=== PATIENT | female | born 1955 | race Hispanic/Latino ===

== ENCOUNTER 2018-10-24 21:03 | Emergency (ER) | payer OTHER ==
[~2018-10-24] VITALS: Ht 160 cm; Wt 85.7 kg
--- OUTSIDE RECORDS SUMMARY | 2018-10-24 21:07 | XMS REPORT | Summary of Care ---
Author Author [facility] Organization [facility] Address Unknown Phone Unavailable Encounter KEV Stewart(DICK) [id number] Date(s): 05/25/15 - 05/25/15 [facility] [address] [place] [address]- [phone] Discharge Diagnosis: Diarrhea, unspecified Discharge Disposition: Home Attending Physician: Ren Garcia MD Vital Signs Most recent to 1 oldest [Reference Range]: Height 160.02 cm (05/25/15 10:33 AM) Temperature Oral 98 DegF [96.4-99.1 DegF] (05/25/15 10:33 AM) Blood Pressure 149/81 mmHg [90-140/60-90 mmHg] *HI* (05/25/15 10:33 AM) Respiratory Rate 18 BRMIN [14-20 BRMIN] (05/25/15 10:33 AM) Peripheral Pulse 111 bpm Rate [60-100 bpm] *HI* (05/25/15 10:33 AM) Weight 79.545 kg (05/25/15 10:33 AM) Body Mass Index 31.06 m2 (05/25/15 10:33 AM) Problem List Condition Effective Dates Status Health Status Informant Hypothyroidism(Confi Resolved rmed) Allergies, Adverse Reactions, Alerts Substance Reaction Severity Status aspirin Active Food Lactose Intolerance Active (Restricts Milk/Milk Products) Medications Flagyl 500 mg oral tablet 500 mg=1 tab, PO, Q8H, X 10 day, # 30 tab, 0 Refill(s), Pharmacy: [facility] [id number] Start Date: 05/25/15 Stop Date: 06/04/15 Status: Ordered morphine Sulfate 4 mg, Route: IVP, ONCE, Dosing Weight 79.545, kg, Priority: STAT, Start date: 11:45:00, Stop date: 05/25/15 11:45:00 Start Date: 05/25/15 Stop Date: 05/25/15 Status: Completed ondansetron 4 mg, Route: IVP, ONCE, Dosing Weight 79.545, kg, Priority: STAT, Start date: 11:45:00, Stop date: 05/25/15 11:45:00 Start Date: 05/25/15 Stop Date: 05/25/15 Status: Completed Saline Flush 0.9% 10 mL, Route: IVP, Drug Form: INJ, Dosing Weight 79.545, kg, PRN, PRN Line Flush , Start date: 05/25/15 11:45:00, Duration: 30 day, Stop date: 06/24/15 11:44:00 Notes: (Same as: BD Posiflush) Start Date: 05/25/15 Stop Date: 05/25/15 Status: Discontinued Sodium Chloride 0.9% (Bolus) IV 1,000 mL, Infuse Over: 1 hr, Route: IV, ONCE, Priority: STAT, Dosing Weight 79.5 45 kg, Start date: 05/25/15 11:45:00, Duration: 1 doses or times, Stop date: 10/03 11:45:00 Start Date: 05/25/15 Stop Date: 05/25/15 Status: Completed Results ELECTROLYTES Most recent to 1 oldest [Reference Range]: Sodium Lvl [135-145 137 mEq/L mEq/L] (05/25/15 12:05 PM) Potassium Lvl 3.6 mEq/L [3.5-5.1 mEq/L] (05/25/15 12:05 PM) Chloride Lvl [95-109 106 mEq/L mEq/L] (05/25/15 12:05 PM) CO2 [24-32 mEq/L] 23 mEq/L *LOW* (05/25/15 12:05 PM) AGAP [10.0-20.0 11.6 mEq/L mEq/L] (05/25/15 12:05 PM) CHEM PANEL Most recent to 1 oldest [Reference Range]: Creatinine Lvl 0.98 mg/dL [0.50-1.40 mg/dL] (05/25/15 12:05 PM) eGFR 64 mL/min/1.73m2 1 *NA* (05/25/15 12:05 PM) BUN [7-22 mg/dL] 11 mg/dL (05/25/15 12:05 PM) B/C Ratio [6-25] 11 (05/25/15 12:05 PM) Glucose Lvl [70-99 106 mg/dL mg/dL] *HI* (05/25/15 12:05 PM) Total Protein 7.7 g/dL [6.4-8.4 g/dL] (05/25/15 12:05 PM) Albumin Lvl [3.5-5.0 3.6 g/dL g/dL] (05/25/15 12:05 PM) Globulin [2.0-4.0 4.1 g/dL g/dL] *HI* (05/25/15 12:05 PM) A/G Ratio [0.7-1.6] 0.9 (05/25/15 12:05 PM) Calcium Lvl 8.6 mg/dL [8.5-10.5 mg/dL] (05/25/15 12:05 PM) ALT [0-65 unit/L] 45 unit/L (05/25/15 12:05 PM) AST [0-37 unit/L] 18 unit/L (05/25/15 12:05 PM) Alk Phos [39-136 177 unit/L unit/L] *HI* (05/25/15 12:05 PM) Bili Total [0.2-1.3 0.6 mg/dL mg/dL] (05/25/15 12:05 PM) Amylase Lvl [25-115 45 unit/L unit/L] (05/25/15 12:05 PM) Lipase Lvl [73-393 94 unit/L unit/L] (05/25/15 12:05 PM) 1Result Comment: The eGFR is calculated using the CKD-EPI formula. In most young, healthy individuals the eGFR will be >90 mL/min/1.73m2. The eGFR declines with age. An eGFR of 60-89 may be normal in some populations, particularly the elderly, for whom the CKD-EPI formula has not been extensively validated. Use of the eGFR is not recommended in the following populations: Individuals with unstable creatinine concentrations, including patients and those with serious co-morbid conditions. Patients with extremes in muscle mass or diet. The data above are obtained from the National Kidney Disease Education Program ( NKDEP) which additionally recommends that when the eGFR is used in patients with extremes of body mass index for purposes of drug dosing, the eGFR should be mul tiplied by the estimated BMI. URINE AND STOOL Most recent to 1 oldest [Reference Range]: UA Turbidity [Clear] Marked *ABN* (05/25/15 10:48 AM) UA Color [Yellow] Yellow *NA* (05/25/15 10:48 AM) UA pH [5.0-8.0] 5.0 (05/25/15 10:48 AM) UA Spec Grav 1.025 [<=1.030] (05/25/15 10:48 AM) UA Glucose [Negative Negative mg/dL mg/dL] *NA* (05/25/15 10:48 AM) UA Blood [Negative] Moderate *ABN* (05/25/15 10:48 AM) UA Ketones [Negative Trace mg/dL mg/dL] *ABN* (05/25/15 10:48 AM) UA Protein [Negative Negative mg/dL mg/dL] (05/25/15 10:48 AM) UA Urobilinogen <=1.0 mg/dL [0.1-1.0 mg/dL] *NA* (05/25/15 10:48 AM) UA Bili [Negative] Negative *NA* (05/25/15 10:48 AM) UA Leuk Est Trace [Negative] *ABN* (05/25/15 10:48 AM) UA Nitrite Negative [Negative] (05/25/15 10:48 AM) UA WBC [0-5 /HPF] 4 /HPF (05/25/15 10:48 AM) UA RBC [0-2 /HPF] 4 /HPF *HI* (05/25/15 10:48 AM) UA Bacteria [None Many /HPF Seen /HPF] *ABN* (05/25/15 10:48 AM) UA Sq Epi [Few /LPF] Many /LPF *ABN* (05/25/15 10:48 AM) UA Mucus [None Seen Many /LPF /LPF] *ABN* (05/25/15 10:48 AM) HEMATOLOGY Most recent to 1 oldest [Reference Range]: WBC [3.7-10.4 K/CMM] 15.3 K/CMM *HI* (05/25/15 12:05 PM) RBC [4.20-5.40 5.63 M/CMM M/CMM] *HI* (05/25/15 12:05 PM) Hgb [12.0-16.0 g/dL] 15.1 g/dL (05/25/15 12:05 PM) Hct [36.0-48.0 %] 47.3 % (05/25/15 12:05 PM) MCV [80.0-98.0 fL] 84.0 fL (05/25/15 12:05 PM) MCH [27.0-31.0 pg] 26.8 pg *LOW* (05/25/15 12:05 PM) MCHC [32.0-36.0 31.8 g/dL g/dL] *LOW* (05/25/15 12:05 PM) RDW [11.5-14.5 %] 13.9 % (05/25/15 12:05 PM) Platelet [133-450 235 K/CMM K/CMM] (05/25/15 12:05 PM) MPV [7.4-10.4 fL] 8.5 fL (05/25/15 12:05 PM) Segs [45.0-75.0 %] 84.9 % *HI* (05/25/15 12:05 PM) Lymphocytes 7.6 % [20.0-40.0 %] *LOW* (05/25/15 12:05 PM) Monocytes [2.0-12.0 7.0 % %] (05/25/15 12:05 PM) Eosinophils [0.0-4.0 0.1 % %] (05/25/15 12:05 PM) Basophils [0.0-1.0 0.4 % %] (05/25/15 12:05 PM) Segs-Bands # 13.0 K/CMM [1.5-8.1 K/CMM] *HI* (05/25/15 12:05 PM) Lymphocytes # 1.2 K/CMM [1.0-5.5 K/CMM] (05/25/15 12:05 PM) Monocytes # [0.0-0.8 1.1 K/CMM K/CMM] *HI* (05/25/15 12:05 PM) Basophils # [0.0-0.2 0.1 K/CMM K/CMM] (05/25/15 12:05 PM) Immunizations No data available for this section Procedures No data available for this section Social History Social History Type Response Smoking Status Former smoker; Exposure to Tobacco Smoke None; Cigarette Smoking Last 365 Days No; Reg Smoking Cessation Counseling No Assessment and Plan No data available for this section
--- OUTSIDE RECORDS SUMMARY | 2018-10-24 21:07 | XMS REPORT ---
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 Role Phone Mary Christina CP Unavailable Allergies, Adverse Reactions, Alerts Substance Reaction Event Type Lactose Info Not Available Drug Allergy Aspirin Info Not Available Drug Allergy Encounters Encounter Location Date feeling discomfort in chest area [facility] Jan 27, 2016 Test results [facility] Feb 08, 2016 YOBANY/KATHRYN-PRISCILLA ALEJANDRO [facility] Feb 09, 2016 Problems Problem Type Condition ICD-9 Code Onset Dates Condition Status Problem Prediabetes R73.09 Active Problem Mixed hyperlipidemia E78.2 Active Problem Osteopenia M85.80 Active Problem History of rheumatoid arthritis Z87.39 Active Assessment Elevated white blood cell count D72.829 Active Medications Medication Code System Code Instructions Start Date End Date Status Dosage Vitamin D (Ergocalciferol) [facility] [address]-94 [id number] UNIT Orally q weekly August 17, 2015 August 11, 2016 Active 1 capsule Levothyroxine Sodium [facility] [address]-80 100 MCG Orally Once a day September 15, 2015 Active 1 tablet Fish Oil [facility] [address]-64 1000 mg Orally twice a day (bid) September 15, 2015 September 09, 2016 Active 2 capsules Social History Social History Element Qualifiers Date Reported Depression Screening: . negative Feb 09, 2016 Ethnicity . Status , Is ukrainian your primary language? Yes Feb 09, 2016 children . 3 Feb 09, 2016 Tobacco Use: . Are you a: never smoker Feb 09, 2016 Flu Vaccine: . No, Advised Feb 09, 2016 Alcohol Screening: . Points: 0, Interpretation: Negative Feb 09, 2016 Do you have pets? . Status: Yes Feb 09, 2016 Marital Status: single. Feb 09, 2016 Caffeine intake? . Status: Yes Feb 09, 2016 Do you exercise? . Answer: Yes Feb 09, 2016 Do you drink alcohol? . Status: No Feb 09, 2016 Family history Qualifier Description Comment Date Reported Maternal Grandmother Comment not available Feb 09, 2016 Paternal Grandmother Comment not available Feb 09, 2016 Siblings Comment not available Feb 09, 2016 Maternal Grandfather Comment not available Feb 09, 2016 Children Comment not available Feb 09, 2016 Father Comment not available Feb 09, 2016 Paternal Grandfather Comment not available Feb 09, 2016 Mother Comment not available Feb 09, 2016 Other: Comment not available Feb 09, 2016 Summary Purpose eClinicalWorks Submission
--- OUTSIDE RECORDS SUMMARY | 2018-10-24 21:07 | XMS REPORT ---
Author Author David Chowdhury [facility] eClinicalWorks Address Unknown Phone Unavailable Care Team Providers Care Pastoral Assistant Name Role Phone David Chowdhury Unavailable Encounters Encounter Location Date feeling discomfort in chest area [facility] Jan 27, 2016 Test results [facility] Feb 08, 2016 Problems Problem Type Condition ICD-9 Code Onset Dates Condition Status Problem Prediabetes R73.09 Active Problem Mixed hyperlipidemia E78.2 Active Problem Osteopenia M85.80 Active Problem History of rheumatoid arthritis Z87.39 Active Assessment Elevated white blood cell count D72.829 Active Social History Social History Element Qualifiers Date Reported Depression Screening: . negative Jan 27, 2016 Ethnicity . Status , Is armenian your primary language? Yes Jan 27, 2016 children . 3 Jan 27, 2016 Tobacco Use: . Are you a: never smoker Jan 27, 2016 Flu Vaccine: . No, Advised Jan 27, 2016 Alcohol Screening: . Points: 0, Interpretation: Negative Jan 27, 2016 Do you have pets? . Status: Yes Jan 27, 2016 Marital Status: single. Jan 27, 2016 Caffeine intake? . Status: Yes Jan 27, 2016 Do you exercise? . Answer: Yes Jan 27, 2016 Do you drink alcohol? . Status: No Jan 27, 2016 Summary Purpose eClinicalWorks Submission
--- OUTSIDE RECORDS SUMMARY | 2018-10-24 21:07 | XMS REPORT | Summary of Care ---
Author Author [facility] Organization [facility] Address Unknown Phone Unavailable Encounter KEV Stewart(DICK) [id number] Date(s): 02/14/16 - 02/14/16 [facility] [address] [place] [address]- Discharge Disposition: Home or Self Care Attending Physician: Jose Thomson MD Referring Physician: Jose Thomson MD Vital Signs 1 2 3 Most recent to oldest [Reference Range]: 160.02 cm (02/09/16 10:19 AM) Height 128/58 mmHg (02/14/16 11:30 AM) 123/57 mmHg (02/14/16 11:00 AM) 124/58 mmHg (02/14/16 10:45 AM) Blood Pressure [90-140/60-90 mmHg] 18 BRMIN (02/14/16 10:45 AM) 16 BRMIN (02/14/16 10:30 AM) 18 BRMIN (02/14/16 10:15 AM) Respiratory Rate [14-20 BRMIN] 78 bpm (02/14/16 8:44 AM) Peripheral Pulse Rate [60-100 bpm] 83.636 kg (02/09/16 10:19 AM) Weight 32.66 m2 (02/09/16 10:19 AM) Body Mass Index Problem List Condition Effective Dates Status Health Status Informant Hypothyroidism(Confi Active rmed) Obesity(Confirmed) Active Allergies, Adverse Reactions, Alerts Substance Reaction Severity Status aspirin Active Food Lactose Intolerance Active (Restricts Milk/Milk Products) Medications acetaminophen (ANES) (ANES) Route: IV, Drug form: INJ, Start date: 02/14/16 9:26:00 CDT, Stop date: 02/14/16 10:26:00 CDT Start Date: 02/14/16 Stop Date: 02/14/16 Status: Completed ANES fentaNYL 25 microgram, Route: IVP, Q5Min, Dosing Weight 83.636, kg, PRN Pain Score 4-6, S tart date: 02/14/16 10:23:00 CDT, Duration: 4 doses or times, Stop date: Limited # of times Start Date: 02/14/16 Stop Date: 02/14/16 Status: Discontinued ANES flumazenil 0.2 mg, Route: IVP, PRN, Dosing Weight 83.636, kg, PRN Benzodiazepine Reversal, Initial dose, Start date: 02/14/16 10:23:00 CDT, Duration: 30 day, Stop date: 10:22:00 CDT Start Date: 02/14/16 Stop Date: 02/14/16 Status: Discontinued ANES HYDROmorphone 0.5 mg, Route: IVP, Q5Min, Dosing Weight 83.636, kg, PRN Pain Score 7-10, Start date: 02/14/16 10:23:00 CDT, Duration: 4 doses or times, Stop date: Limited # of times Start Date: 02/14/16 Stop Date: 02/14/16 Status: Discontinued ANES naloxone 0.4 mg, Route: IVP, Q2MIN, Dosing Weight 83.636, kg, PRN Narcotic Reversal, Star t date: 02/14/16 10:23:00 CDT, Duration: 8 doses or times, Stop date: Limited # of times Start Date: 02/14/16 Stop Date: 02/14/16 Status: Discontinued ANES ondansetron 4 mg, Route: IVP, ONCE, Dosing Weight 83.636, kg, PRN Nausea & Vomiting, Start date: 02/14/16 10:23:00 CDT Start Date: 02/14/16 Stop Date: 02/14/16 Status: Discontinued ANES promethazine 6.25 mg, Route: IVPB, ONCE, Dosing Weight 83.636, kg, PRN Nausea & Vomiting, Start date: 02/14/16 10:23:00 CDT Start Date: 02/14/16 Stop Date: 02/14/16 Status: Discontinued ceFAZolin (ANES) (ANES) Route: IV, Drug form: INJ, Start date: 02/14/16 9:11:00 CDT, Stop date: 02/14/16 10:11:00 CDT Start Date: 02/14/16 Stop Date: 02/14/16 Status: Completed Colace 100 mg oral capsule 100 mg=1 cap, PO, BID, PRN Constipation, # 20 cap, 0 Refill(s), Pharmacy: [facility] [id number] Start Date: 02/14/16 Status: Ordered dexamethasone (ANES) Route: IV, Drug form: INJ, ONCE, Stop date: 02/14/16 9:51:00 CDT Start Date: 02/14/16 Stop Date: 02/14/16 Status: Completed ePHEDrine (ANES) Route: IV, Drug form: INJ, ONCE, Stop date: 02/14/16 10:09:00 CDT Start Date: 02/14/16 Stop Date: 02/14/16 Status: Completed fentaNYL (ANES) Route: IV, Drug form: INJ, ONCE, Stop date: 02/14/16 9:51:00 CDT Start Date: 02/14/16 Stop Date: 02/14/16 Status: Completed Fish Oil 1000 mg oral capsule 1,000 mg=1 cap, PO, TID, 0 Refill(s) Start Date: 02/09/16 Status: Ordered glycopyrrolate (ANES) Route: IV, Drug form: INJ, ONCE, Stop date: 02/14/16 10:09:00 CDT Start Date: 02/14/16 Stop Date: 02/14/16 Status: Completed hydromorphone (ANES) Route: IV, Drug form: INJ, ONCE, Stop date: 02/14/16 10:09:00 CDT Start Date: 02/14/16 Stop Date: 02/14/16 Status: Completed ketOROLAC (ANES) IV, ONCE Start Date: 02/14/16 Stop Date: 02/14/16 Status: Completed Lactated Ringers Injection IV 1000 mL 1,000 mL, Rate: 25 ml/hr, Infuse over: 40 hr, Route: IV, Dosing Weight 83.636 kg , Total Volume: 1,000, Start date: 02/14/16 8:36:00 CDT, Duration: 30 day, Stop date: 03/15/16 8:35:00 CDT Start Date: 02/14/16 Stop Date: 02/14/16 Status: Discontinued lidocaine (ANES) Route: IV, Drug form: INJ, ONCE, Stop date: 02/14/16 9:51:00 CDT Start Date: 02/14/16 Stop Date: 02/14/16 Status: Completed LR 1000 mL INJ (ANES) Route: IV, Total Volume: 1,000, Start date: 02/14/16 9:00:00 CDT, Stop date: 10:00:00 CDT Start Date: 02/14/16 Stop Date: 02/14/16 Status: Completed midazolam (ANES) Route: IV, Drug form: SOLN, ONCE, Stop date: 02/14/16 9:51:00 CDT Start Date: 02/14/16 Stop Date: 02/14/16 Status: Completed neostigmine (ANES) Route: IV, Drug form: INJ, ONCE, Stop date: 02/14/16 10:09:00 CDT Start Date: 02/14/16 Stop Date: 02/14/16 Status: Completed ondansetron (ANES) Route: IV, Drug form: INJ, ONCE, Stop date: 02/14/16 10:09:00 CDT Start Date: 02/14/16 Stop Date: 02/14/16 Status: Completed oxyCODONE 5 mg oral tablet 5 mg, Route: PO, Drug form: TAB, ONCE, Dosing Weight 83.636, kg, PRN Pain Score 4-6, Start date: 02/14/16 10:53:00 CDT Start Date: 02/14/16 Stop Date: 02/14/16 Status: Completed propofol (ANES) Route: IV, Drug form: INJ, ONCE, Stop date: 02/14/16 9:51:00 CDT Start Date: 02/14/16 Stop Date: 02/14/16 Status: Completed rocuronium (ANES) Route: IV, Drug form: INJ, ONCE, Stop date: 02/14/16 9:51:00 CDT Start Date: 02/14/16 Stop Date: 02/14/16 Status: Completed Tylenol with Codeine #3 oral tablet 1 tab, PO, Q6H, PRN pain, X 7 day, # 28 tab, 0 Refill(s) Start Date: 02/14/16 Stop Date: 02/21/16 Status: Ordered Results ELECTROLYTES Most recent to 1 oldest [Reference Range]: Sodium Lvl [135-145 140 mEq/L mEq/L] (02/09/16 10:42 AM) Potassium Lvl 4.1 mEq/L [3.5-5.1 mEq/L] (02/09/16 10:42 AM) Chloride Lvl [95-109 109 mEq/L mEq/L] (02/09/16 10:42 AM) CO2 [24-32 mEq/L] 24 mEq/L (02/09/16 10:42 AM) AGAP [10.0-20.0 11.1 mEq/L mEq/L] (02/09/16 10:42 AM) CHEM PANEL Most recent to 1 oldest [Reference Range]: Creatinine Lvl 0.75 mg/dL [0.50-1.40 mg/dL] (02/09/16 10:42 AM) eGFR 87 mL/min/1.73m2 1 *NA* (02/09/16 10:42 AM) BUN [7-22 mg/dL] 13 mg/dL (02/09/16 10:42 AM) B/C Ratio [6-25] 17 (02/09/16 10:42 AM) Glucose Lvl [70-99 105 mg/dL mg/dL] *HI* (02/09/16 10:42 AM) Total Protein 7.6 g/dL [6.4-8.4 g/dL] (02/09/16 10:42 AM) Albumin Lvl [3.5-5.0 3.7 g/dL g/dL] (02/09/16 10:42 AM) Globulin [2.7-4.2 3.9 g/dL g/dL] (02/09/16 10:42 AM) A/G Ratio [0.7-1.6] 0.9 (02/09/16 10:42 AM) Calcium Lvl 8.8 mg/dL [8.5-10.5 mg/dL] (02/09/16 10:42 AM) ALT [0-65 unit/L] 50 unit/L (02/09/16 10:42 AM) AST [0-37 unit/L] 19 unit/L (02/09/16 10:42 AM) Alk Phos [39-136 182 unit/L unit/L] *HI* (02/09/16 10:42 AM) Bili Total [0.2-1.3 0.4 mg/dL mg/dL] (02/09/16 10:42 AM) 1Result Comment: The eGFR is calculated using [...] be mul tiplied by the estimated BMI. HEMATOLOGY Most recent to 1 oldest [Reference Range]: WBC [3.7-10.4 K/CMM] 11.7 K/CMM *HI* (02/09/16 10:42 AM) RBC [4.20-5.40 5.26 M/CMM M/CMM] (02/09/16 10:42 AM) Hgb [12.0-16.0 g/dL] 14.2 g/dL (02/09/16 10:42 AM) Hct [36.0-48.0 %] 43.1 % (02/09/16 10:42 AM) MCV [80.0-98.0 fL] 81.8 fL (02/09/16 10:42 AM) MCH [27.0-31.0 pg] 26.9 pg *LOW* (02/09/16 10:42 AM) MCHC [32.0-36.0 32.9 g/dL g/dL] (02/09/16 10:42 AM) RDW [11.5-14.5 %] 13.4 % (02/09/16 10:42 AM) Platelet [133-450 267 K/CMM K/CMM] (02/09/16 10:42 AM) MPV [7.4-10.4 fL] 8.3 fL (02/09/16 10:42 AM) Segs [45.0-75.0 %] 68.0 % (02/09/16 10:42 AM) Lymphocytes 23.2 % [20.0-40.0 %] (02/09/16 10:42 AM) Monocytes [2.0-12.0 5.8 % %] (02/09/16 10:42 AM) Eosinophils [0.0-4.0 1.8 % %] (02/09/16 10:42 AM) Basophils [0.0-1.0 1.2 % %] *HI* (02/09/16 10:42 AM) Segs-Bands # 8.0 K/CMM [1.5-8.1 K/CMM] (02/09/16 10:42 AM) Lymphocytes # 2.7 K/CMM [1.0-5.5 K/CMM] (02/09/16 10:42 AM) Monocytes # [0.0-0.8 0.7 K/CMM K/CMM] (02/09/16 10:42 AM) Eosinophils # 0.2 K/CMM [0.0-0.5 K/CMM] (02/09/16 10:42 AM) Basophils # [0.0-0.2 0.1 K/CMM K/CMM] (02/09/16 10:42 AM) Immunizations No data available for this section Procedures Procedure Date Related Diagnosis Body Site Sling procedure of bladder neck 02/2009 Knee1 2005 section 04/1992 1SCOPE Social History Social History Type Response Alcohol Current, Type Wine. Frequency: 1-2 times per week. Smoking Status Former smoker; Type: Cigarettes; Exposure to Tobacco Smoke None; Cigarette Smoking Last 365 Days No; Reg Smoking Cessation Counseling No Assessment and Plan Extracted from: Title: Clinical Document Author: Jose Thomson MD Date: 02/14/16 DATE OF PROCEDURE: 02/14/2016. PREOPERATIVE DIAGNOSIS: Gallstones. POSTOPERATIVE DIAGNOSIS: Gallstones. TECHNICAL PROCEDURE PERFORMED: Laparoscopic cholecystectomy. SURGEON: Garcia Le, M.D. ANESTHESIA: General endotracheal. SURGICAL WOUND CLASSIFICATION: Clean contaminate. OPERATIVE TIME: 30 minutes. ESTIMATED BLOOD LOSS: Minimal. FLUID REPLACEMENT: Per anesthesia. SPECIMENS SENT FOR PATHOLOGY: Gallbladder. COMPLICATIONS: None. FINDINGS: 1. Gallstones. 2. Well visualized critical view. CONDITION: To recovery, stable. POSTOPERATIVE PLAN: To the floor INDICATIONS: A 60 year old lady that presented to my clinic with abdominal pain. At this time, the history and physical as well as laboratory studies was consistent with diagnosis of symptomatic gallstones. Therefore, the option of laparoscopic versus open cholecystectomy was offered to the patient. Risks and benefits of the procedure were explained and the patient voiced understanding and consented to procedure. OPERATIVE NARRATIVE: Patient was taken the operating room, placed on the operating table, intubated by anesthesia. The abdomen was prepped and draped in the usual sterile fashion. A timeout was called and the correct patient, as well as procedure was verified. The patient had SCDs on for thromboembolic prophylaxis and received antibiotics within 1 hour of the incision. Umbilical region was identified, 0.5% Marcaine was infused followed 1-cm incision followed by dissection of the fascia. The fascia was grasped with a Simona clamp and a Veress was place, confirmed with a positive saline drop test. Pneumoperitoneum was achieved with CO2 gas up to 15 mmHg. A 1-cm trocar was placed in the umbilical incision. The patient was placed in reverse Trendelenburg position airplaned to the left; 0.5 cm trocars were introduced in the epigastrium, right upper quadrant right periumbilical regions under direct visualization. The gallbladder was identified. It was grasped at the fundus and retracted to the head, infundibulum was identified, grasped and retracted towards the legs, exposing the triangle of Calot. The cystic duct was identified, it was dissected out from all surrounding structures, clipped proximally 3 times, distally once, transected in between. Of note, a well visualized critical view was identified; therefore we bypassed cholangiogram. The dissection continued to identify the cystic artery, it was dissected out from all surrounding structures, clipped proximally twice, distally once, and transected in between. The gallbladder was then elevated off the liver bed using electrocautery. It was placed in the Endopouch bag and removed from the abdomen through the umbilical port. The liver bed was inspected, all residual bleeding was identified and controlled. The abdomen was irrigated with copious amounts water until clear return was achieved. The patient was placed flat and all residual irrigation was suctioned out. The pneumoperitoneum was decom pressed and the fascia at the umbilical port was closed using 0 Vicryl in a [id number] manner, and the skin was closed using 4-0 Monocryl in running subcuticular manner. The skin and three 5-mm ports were closed using 4-0 Monocryl in simple U-stitch manner. The patient was extubated in the operating room and transferred to recovery in stable condition. All instrument and laparotomy counts were correct.
--- OUTSIDE RECORDS SUMMARY | 2018-10-24 21:07 | XMS REPORT | Continuity of Care Document ---
Author Author [facility] Interface Address Unknown Phone Unavailable Problems Problem Status Onset Date Classification Date Reported Comments Source UNK Active 02/03/2016 [facility] Discharge Diagnosis: Diarrhea, unspecified 05/25/2015 05/28/2015 [facility] ABDOMINAL PAIN Active 05/25/2015 [facility] Prediabetes Active Problem 10/06/2016 [facility] Mixed hyperlipidemia Active Problem 10/06/2016 [facility] Osteopenia Active Problem 10/06/2016 [facility] History of rheumatoid arthritis Active Problem 10/06/2016 [facility] Elevated white blood cell count Active Diagnosis 02/12/2016 [facility] Chest discomfort Active Diagnosis 01/29/2016 [facility] Abdominal discomfort Active Diagnosis 01/29/2016 [facility] Gallstones Active Diagnosis 01/29/2016 [facility] Hypothyroidism Active Problem 02/17/2016 [facility] Obesity Active Problem 02/17/2016 [facility] Medications Medication Details Route Status Patient Instructions Ordering Provider Order Date Source Oxycodone Hydrochloride 5 MG Oral Tablet 5 mg, Route: PO, Drug form: TAB, ONCE, Dosing Weight 83.636, kg, PRN Pain Score 4-6, Start date: 02/14/16 10:53:00 CDT Inactive 02/14/2016 [facility] Naloxone 0.4 mg, Route: IVP, Q2MIN, Dosing Weight 83.636, kg, PRN Narcotic Reversal, Start date: 02/14/16 10:23:00 CDT, Duration: 8 doses or times, Stop date: Limited # of times Inactive 02/14/2016 [facility] Flumazenil 0.2 mg, Route: IVP, PRN, Dosing Weight 83.636, kg, PRN Benzodiazepine Reversal, Initial dose, Start date: 02/14/16 10:23:00 CDT, Duration: 30 day, Stop date: 03/15/16 10:22:00 CDT Inactive 02/14/2016 [facility] Promethazine 6.25 mg, Route: IVPB, ONCE, Dosing Weight 83.636, kg, PRN Nausea & Vomiting, Start date: 02/14/16 10:23:00 CDT Inactive 02/14/2016 [facility] Ondansetron 4 mg, Route: IVP, ONCE, Dosing Weight 83.636, kg, PRN Nausea & Vomiting, Start date: 02/14/16 10:23:00 CDT Inactive 02/14/2016 [facility] Fentanyl 25 microgram, Route: IVP, Q5Min, Dosing Weight 83.636, kg, PRN Pain Score 4-6, Start date: 02/14/16 10:23:00 CDT, Duration: 4 doses or times, Stop date: Limited # of times Inactive 02/14/2016 [facility] Hydromorphone 0.5 mg, Route: IVP, Q5Min, Dosing Weight 83.636, kg, PRN Pain Score 7-10, Start date: 02/14/16 10:23:00 CDT, Duration: 4 doses or times, Stop date: Limited # of times Inactive 02/14/2016 [facility] ePHEDrine (ANES) Route: IV, Drug form: INJ, ONCE, Stop date: 02/14/16 10:09:00 CDT Inactive 02/14/2016 [facility] ondansetron (ANES) Route: IV, Drug form: INJ, ONCE, Stop date: 02/14/16 10:09:00 CDT Inactive 02/14/2016 [facility] hydromorphone (ANES) Route: IV, Drug form: INJ, ONCE, Stop date: 02/14/16 10:09:00 CDT Inactive 02/14/2016 [facility] glycopyrrolate (ANES) Route: IV, Drug form: INJ, ONCE, Stop date: 02/14/16 10:09:00 CDT Inactive 02/14/2016 [facility] ketOROLAC (ANES) IV, ONCE Inactive 02/14/2016 [facility] neostigmine (ANES) Route: IV, Drug form: INJ, ONCE, Stop date: 02/14/16 10:09:00 CDT Inactive 02/14/2016 [facility] Docusate Sodium 100 MG Oral Capsule [Colace] 100 mg=1 cap, PO, BID, PRN Constipation, # 20 cap, 0 Refill(s), Pharmacy: [facility] [id number] Active 02/14/2016 [facility] Acetaminophen 300 MG / Codeine Phosphate 30 MG Oral Tablet [Tylenol with Codeine #3] 1 tab, PO, Q6H, PRN pain, X 7 day, # 28 tab, 0 Refill(s) Active 02/14/2016 [facility] fentaNYL (ANES) Route: IV, Drug form: INJ, ONCE, Stop date: 02/14/16 9:51:00 CDT Inactive 02/14/2016 [facility] lidocaine (ANES) Route: IV, Drug form: INJ, ONCE, Stop date: 02/14/16 9:51:00 CDT Inactive 02/14/2016 [facility] midazolam (ANES) Route: IV, Drug form: SOLN, ONCE, Stop date: 02/14/16 9:51:00 CDT Inactive 02/14/2016 [facility] dexamethasone (ANES) Route: IV, Drug form: INJ, ONCE, Stop date: 02/14/16 9:51:00 CDT Inactive 02/14/2016 [facility] rocuronium (ANES) Route: IV, Drug form: INJ, ONCE, Stop date: 02/14/16 9:51:00 CDT Inactive 02/14/2016 [facility] propofol (ANES) Route: IV, Drug form: INJ, ONCE, Stop date: 02/14/16 9:51:00 CDT Inactive 02/14/2016 [facility] acetaminophen (ANES) (ANES) Route: IV, Drug form: INJ, Start date: 02/14/16 9:26:00 CDT, Stop date: 02/14/16 10:26:00 CDT Inactive 02/14/2016 [facility] ceFAZolin (ANES) (ANES) Route: IV, Drug form: INJ, Start date: 02/14/16 9:11:00 CDT, Stop date: 02/14/16 10:11:00 CDT Inactive 02/14/2016 [facility] LR 1000 mL INJ (ANES) Route: IV, Total Volume: 1,000, Start date: 02/14/16 9:00:00 CDT, Stop date: 02/14/16 10:00:00 CDT Inactive 02/14/2016 [facility] Calcium Chloride 0.0014 MEQ/ML / Potassium Chloride 0.004 MEQ/ML / Sodium Chloride 0.103 MEQ/ML / Sodium Lactate 0.028 MEQ/ML Injectable Solution 1,000 mL, Rate: 25 ml/hr, Infuse over: 40 hr, Route: IV, Dosing Weight 83.636 kg, Total Volume: 1,000, Start date: 02/14/16 8:36:00 CDT, Duration: 30 day, Stop date: 03/15/16 8:35:00 CDT Inactive 02/14/2016 [facility] Fish Oil 1000 mg oral capsule 1,000 mg=1 cap, PO, TID, 0 Refill(s) Active 02/09/2016 [facility] Levothyroxine Sodium 1 tablet Orally Active 100 MCG Orally Once a day Ghebranious 09/15/2015 [facility] Fish Oil 2 capsules Orally Active 1000 mg Orally twice a day (bid) [facility] 09/15/2015 [facility] Vitamin D (Ergocalciferol) 1 capsule Orally Active 31988 UNIT Orally q weekly [facility] 08/17/2015 [facility] Metronidazole 500 MG Oral Tablet [Flagyl] 500 mg=1 tab, PO, Q8H, X 10 day, # 30 tab, 0 Refill(s), Pharmacy: [facility] [id number] Active 05/25/2015 [facility] Ondansetron 4 mg, Route: IVP, ONCE, Dosing Weight 79.545, kg, Priority: STAT, Start date: 05/25/15 11:45:00, Stop date: 05/25/15 11:45:00 Inactive 05/25/2015 [facility] Morphine 4 mg, Route: IVP, ONCE, Dosing Weight 79.545, kg, Priority: STAT, Start date: 05/25/15 11:45:00, Stop date: 05/25/15 11:45:00 Inactive 05/25/2015 [facility] Sodium Chloride 0.154 MEQ/ML Injectable Solution 1,000 mL, Infuse Over: 1 hr, Route: IV, ONCE, Priority: STAT, Dosing Weight 79.545 kg, Start date: 05/25/15 11:45:00, Duration: 1 doses or times, Stop date: 05/25/15 11:45:00 Inactive 05/25/2015 [facility] Saline Flush 0.9% 10 mL, Route: IVP, Drug Form: INJ, Dosing Weight 79.545, kg, PRN, PRN Line Flush, Start date: 05/25/15 11:45:00, Duration: 30 day, Stop date: 06/24/15 11:44:00Notes: (Same as: BD Posiflush) Inactive 05/25/2015 [facility] Allergies, Adverse Reactions, Alerts Substance Category Reaction Severity Reaction type Status Date Reported Comments Source Lactose Adverse Reaction Info Not Available Adverse Reaction Active 02/09/2016 [facility] Aspirin Adverse Reaction Info Not Available Adverse Reaction Active 02/09/2016 [facility] aspirin Assertion Drug allergy Active [facility] Food Lactose Intolerance (Restricts Milk/Milk Products) Assertion Drug allergy Active [facility] Immunizations Immunization Date Given Site Status Last Updated Comments Source Results Order Name Results Value Reference Range Date Interpretation Comments Source CHEM PANEL eGFR 87 mL/min/1.73m2 02/09/2016 Result Comment: The eGFR is calculated using the [...] from the National Kidney Disease Education Program (NKDEP) which additionally recommends that when the eGFR is used in patients with extremes of body mass index for purposes of drug dosing, the eGFR should be multiplied by the estimated BMI. [facility] CHEM PANEL Bili Total 0.4 mg/dL 0.2 - 1.3 02/09/2016 [facility] CHEM PANEL Calcium Lvl 8.8 mg/dL 8.5 - 10.5 02/09/2016 [facility] CHEM PANEL Albumin Lvl 3.7 g/dL 3.5 - 5.0 02/09/2016 [facility] CHEM PANEL Total Protein 7.6 g/dL 6.4 - 8.4 02/09/2016 [facility] CHEM PANEL AST 19 unit/L 0 - 37 02/09/2016 [facility] CHEM PANEL Alk Phos 182 unit/L 39 - 136 02/09/2016 [facility] CHEM PANEL ALT 50 unit/L 0 - 65 02/09/2016 [facility] CHEM PANEL Potassium Lvl 4.1 meq/L 3.5 - 5.1 02/09/2016 [facility] CHEM PANEL Chloride Lvl 109 meq/L 95 - 109 02/09/2016 [facility] CHEM PANEL CO2 24 meq/L 24 - 32 02/09/2016 [facility] CHEM PANEL Sodium Lvl 140 meq/L 135 - 145 02/09/2016 [facility] CHEM PANEL Creatinine Lvl 0.75 mg/dL 0.50 - 1.40 02/09/2016 [facility] CHEM PANEL BUN 13 mg/dL 7 - 22 02/09/2016 [facility] CHEM PANEL Glucose Lvl 105 mg/dL 70 - 99 02/09/2016 [facility] CHEM PANEL B/C Ratio 17 6 - 25 02/09/2016 [facility] CHEM PANEL AGAP 11.1 meq/L 10.0 - 20.0 02/09/2016 [facility] CHEM PANEL A/G Ratio 0.9 0.7 - 1.6 02/09/2016 [facility] CHEM PANEL Globulin 3.9 g/dL 2.7 - 4.2 02/09/2016 [facility] HEMATOLOGY Basophils 1.2 % 0.0 - 1.0 02/09/2016 [facility]EMAT[facility] Monocytes # 0.7 K/CMM 0.0 - 0.8 02/09/2016 [facility] HEMATOLOGY Segs-Bands # 8.0 K/CMM 1.5 - 8.1 02/09/2016 [facility]EM[facility] Lymphocytes # 2.7 K/CMM 1.0 - 5.5 02/09/2016 [facility] Eosinophils # 0.2 K/CMM 0.0 - 0.5 02/09/2016 [facility] HEMATOLOGY Basophils # 0.1 K/CMM 0.0 - 0.2 02/09/2016 [facility] HEMATOLOGY Segs 68.0 % 45.0 - 75.0 02/09/2016 [facility] HEMATOLOGY Lymphocytes 23.2 % 20.0 - 40.0 02/09/2016 [facility] HEMATOLOGY Monocytes 5.8 % 2.0 - 12.0 02/09/2016 [facility]EM[facility] Eosinophils 1.8 % 0.0 - 4.0 02/09/2016 [facility] HEMAT[facility]Y Platelet 267 K/CMM 133 - 450 02/09/2016 [facility] HEMATOLOGY MPV 8.3 fL 7.4 - 10.4 02/09/2016 [facility] RDW 13.4 % 11.5 - 14.5 02/09/2016 [facility] WBC 11.7 K/CMM 3.7 - 10.4 02/09/2016 [facility] RBC 5.26 M/CMM 4.20 - 5.40 02/09/2016 [facility] MCHC 32.9 g/dL 32.0 - 36.0 02/09/2016 [facility] MCV 81.8 fL 80.0 - 98.0 02/09/2016 [facility] MCH 26.9 pg 27.0 - 31.0 02/09/2016 [facility] Hct 43.1 % 36.0 - 48.0 02/09/2016 [facility] Hgb 14.2 g/dL 12.0 - 16.0 02/09/2016 [facility] CHEM PANEL Lipase Lvl 94 unit/L 73 - 393 05/25/2015 [facility] CHEM PANEL Amylase Lvl 45 unit/L 25 - 115 05/25/2015 [facility] ELECTROLYTES AGAP 11.6 meq/L 10.0 - 20.0 05/25/2015 [facility] ELECTROLYTES Globulin 4.1 g/dL 2.0 - 4.0 05/25/2015 [facility] ELECTROLYTES B/C Ratio 11 6 - 25 05/25/2015 [facility] ELECTROLYTES A/G Ratio 0.9 0.7 - 1.6 05/25/2015 [facility] ELECTROLYTES eGFR 64 mL/min/1.73m2 05/25/2015 Result Comment: The eGFR is calculated using the [...] from the National Kidney Disease Education Program (NKDEP) which additionally recommends that when the eGFR is used in patients with extremes of body mass index for purposes of drug dosing, the eGFR should be multiplied by the estimated BMI. [facility] ELECTROLYTES Bili Total 0.6 mg/dL 0.2 - 1.3 05/25/2015 [facility] Sodium Lvl 137 meq/L 135 - 145 05/25/2015 [facility]LECT[facility]TES Potassium Lvl 3.6 meq/L 3.5 - 5.1 05/25/2015 [facility]LECT[facility] Creatinine Lvl 0.98 mg/dL 0.50 - 1.40 05/25/2015 [facility]LECT[facility] Chloride Lvl 106 meq/L 95 - 109 05/25/2015 [facility] ELECTROLYTES CO2 23 meq/L 24 - 32 05/25/2015 [facility]LECT[facility]OLYTES Total Protein 7.7 g/dL 6.4 - 8.4 05/25/2015 [facility] ELECTROLYTES Albumin Lvl 3.6 g/dL 3.5 - 5.0 05/25/2015 [facility] ELECTROLYTES Calcium Lvl 8.6 mg/dL 8.5 - 10.5 05/25/2015 [facility]LECT[facility] Alk Phos 177 unit/L 39 - 136 05/25/2015 [facility] ELECTROLYTES AST 18 unit/L 0 - 37 05/25/2015 [facility] ELECTROLYTES ALT 45 unit/L 0 - 65 05/25/2015 [facility]LECT[facility]TES BUN 11 mg/dL 7 - 22 05/25/2015 [facility] Glucose Lvl 106 mg/dL 70 - 99 05/25/2015 [facility] HEMATOLOGY Basophils # 0.1 K/CMM 0.0 - 0.2 05/25/2015 [facility] Lymphocytes 7.6 % 20.0 - 40.0 05/25/2015 [facility]EM[facility] Monocytes 7.0 % 2.0 - 12.0 05/25/2015 [facility]EM[facility] Monocytes # 1.1 K/CMM 0.0 - 0.8 05/25/2015 [facility] Lymphocytes # 1.2 K/CMM 1.0 - 5.5 05/25/2015 [facility] HEMATOLOG[facility] Segs 84.9 % 45.0 - 75.0 05/25/2015 [facility] HEMATOLOGY Segs-Bands # 13.0 K/CMM 1.5 - 8.1 05/25/2015 [facility]EM[facility] Basophils 0.4 % 0.0 - 1.0 05/25/2015 [facility] Eosinophils 0.1 % 0.0 - 4.0 05/25/2015 [facility] Hct 47.3 % 36.0 - 48.0 05/25/2015 [facility]EM[facility] MCH 26.8 pg 27.0 - 31.0 05/25/2015 [facility] HEMATOLOGY MCV 84.0 fL 80.0 - 98.0 05/25/2015 [facility] HEMATOLOGY RDW 13.9 % 11.5 - 14.5 05/25/2015 [facility] HEMATOLOGY MCHC 31.8 g/dL 32.0 - 36.0 05/25/2015 [facility] HEMATOLOGY Platelet 235 K/CMM 133 - 450 05/25/2015 [facility] HEMATOLOGY MPV 8.5 fL 7.4 - 10.4 05/25/2015 [facility] HEMATOLOGY Hgb 15.1 g/dL 12.0 - 16.0 05/25/2015 [facility] HEMATOLOGY WBC 15.3 K/CMM 3.7 - 10.4 05/25/2015 [facility] HEMATOLOGY RBC 5.63 M/CMM 4.20 - 5.40 05/25/2015 [facility] URINE AND STOOL UA Urobilinogen <=1.0 mg/dL 0.1 - 1.0 05/25/2015 [facility] URINE AND STOOL UA Mucus Many /LPF None Seen /LPF 05/25/2015 [facility] URINE AND STOOL UA Bacteria Many /HPF None Seen /HPF 05/25/2015 [facility] URINE AND STOOL UA RBC 4 /HPF 0 - 2 05/25/2015 [facility] URINE AND STOOL UA Leuk Est Trace *ABN* (05/25/15 10:48 AM) Negative 05/25/2015 [facility] URINE AND STOOL UA Sq Epi Many /LPF Few /LPF 05/25/2015 [facility] URINE AND STOOL UA WBC 4 /HPF 0 - 5 05/25/2015 [facility] URINE AND STOOL UA Nitrite Negative (05/25/15 10:48 AM) Negative 05/25/2015 [facility] URINE AND STOOL UA Glucose Negative mg/dL Negative mg/dL 05/25/2015 [facility] URINE AND STOOL UA Ketones Trace mg/dL Negative mg/dL 05/25/2015 [facility] URINE AND STOOL UA Bili Negative *NA* (05/25/15 10:48 AM) Negative 05/25/2015 [facility] URINE AND STOOL UA Spec Grav 1.025 <=1.030 05/25/2015 [facility] URINE AND STOOL UA pH 5.0 5.0 - 8.0 05/25/2015 [facility] URINE AND STOOL UA Blood Moderate *ABN* (05/25/15 10:48 AM) Negative 05/25/2015 [facility] URINE AND STOOL UA Color Yellow *NA* (05/25/15 10:48 AM) Yellow 05/25/2015 [facility] URINE AND STOOL UA Protein Negative mg/dL Negative mg/dL 05/25/2015 [facility] URINE AND STOOL UA Turbidity Marked *ABN* (05/25/15 10:48 AM) Clear 05/25/2015 [facility] ED Abdomen/Pelvis IV contrast only CT ED Abdomen/Pelvis IV contrast only CT CT ABDOMEN AND PELVIS WITH CONTRAST. INDICATION: Mid and lower abdominal and bilateral flank pain, nausea and vomiting, fever for 3 days. Axial images with sagittal and coronal reconstructions were obtained following nonionic intravenous contrast, Omnipaque 100 cc. The lung bases demonstrate minor interstitial scarring. There is diffuse fatty infiltration of the liver. The gallbladder, common duct and spleen are not remarkable. There is a small left renal cortical cyst. The kidneys are otherwise unremarkable. The adrenals and pancreas appear normal. No intestinal lesion or mesenteric inflammatory change is noted. The sigmoid is quite ectatic. The appendix is normal. The uterus, adnexa and urinary bladder not remarkable. No adenopathy or ascites is seen. There is minor atherosclerosis. IMPRESSION: 1. No acute abnormality. 2. Fatty liver. SL: 12 05/25/2015 - - Read by: Daniel Carranza MD Dictated Date/time: 05/25/15 14:58 Electronically Signed by: Daniel Carranza MD 05/25/15 15:02 FINAL REPORT [facility] Vital Signs Vital Sign Value Date Comments Source Systolic (mm Hg) 128 02/14/2016 [facility] Diastolic (mm Hg) 58 02/14/2016 [facility] Systolic (mm Hg) 123 02/14/2016 [facility] Diastolic (mm Hg) 57 02/14/2016 [facility] Systolic (mm Hg) 124 02/14/2016 [facility] Diastolic (mm Hg) 58 02/14/2016 [facility] Respitory Rate 18 02/14/2016 [facility] Respitory Rate 16 02/14/2016 [facility] Respitory Rate 18 02/14/2016 [facility] Heart Rate 78 02/14/2016 [facility] Weight 83.636 02/09/2016 [facility] BMI Calculated 32.66 02/09/2016 [facility] Height 160.02 cm 02/09/2016 [facility] Weight 185 01/27/2016 [facility] Height 63 01/27/2016 [facility] Heart Rate 83 01/27/2016 [facility] Diastolic (mm Hg) 80 01/27/2016 [facility] Systolic (mm Hg) 128 01/27/2016 [facility] Height 160.02 cm 05/25/2015 [facility] Systolic (mm Hg) 149 05/25/2015 [facility] Diastolic (mm Hg) 81 05/25/2015 [facility] Heart Rate 111 05/25/2015 [facility] Respitory Rate 18 05/25/2015 [facility] BMI Calculated 31.06 05/25/2015 [facility] Weight 79.545 05/25/2015 [facility] Temperature Oral (F) 98 F 05/25/2015 [facility] Encounters Location Location Details Encounter Type Encounter Number Reason For Visit Attending Provider ADM Date DC Date Status Source [facility] [id number] Ren Mandaeism 05/25/2015 05/25/2015 [facility] feeling discomfort in chest area [id number] 01/27/2016 01/27/2016 [facility] feeling discomfort in chest area [id number] 01/27/2016 01/27/2016 [facility] feeling discomfort in chest area [id number] 01/27/2016 01/27/2016 [facility] Test results [id number] 02/08/2016 02/08/2016 [facility] Test results [id number] 02/08/2016 02/08/2016 [facility] YOBANY/KATHRYN-REPEAT [facility] [id number] 02/09/2016 02/09/2016 [facility] Outpatient [id number] AMBROSE ROBERT 02/14/2016 Active [facility] [id number] Garcia Robert 02/14/2016 02/14/2016 [facility] Outpatient [id number] GARCIA ROBERT 02/22/2016 Active [facility] Procedures Procedure Code Date Perfomer Comments Source Sling procedure of bladder neck [id number] 02/18/2009 [facility] Knee<sup>1</sup> [id number] 05/21/2005 SCOPE [facility] section [id number] 04/20/1992 [facility]
--- OUTSIDE RECORDS SUMMARY | 2018-10-24 21:07 | XMS REPORT ---
Author Author Mary Christina [facility] [employer] Address Unknown Phone Unavailable Care Team Providers Care Unit Aide Tech Name Role Phone Mary Christina CP Unavailable Allergies, Adverse Reactions, Alerts Substance Reaction Event Type Lactose Info Not Available Drug Allergy Aspirin Info Not Available Drug Allergy Encounters Encounter Location Date feeling discomfort in chest area [facility] Jan 27, 2016 Problems Problem Type Condition ICD-9 Code Onset Dates Condition Status Assessment Chest discomfort R07.89 Active Problem Prediabetes R73.09 Active Problem Mixed hyperlipidemia E78.2 Active Problem Osteopenia M85.80 Active Assessment Prediabetes R73.09 Active Assessment Abdominal discomfort R10.9 Active Problem History of rheumatoid arthritis Z87.39 Active Assessment Gallstones K80.20 Active Medications Medication Code System Code Instructions Start Date End Date Status Dosage Vitamin D (Ergocalciferol) [facility] [id number] UNIT Orally q weekly August 17, 2015 August 11, 2016 Active 1 capsule Levothyroxine Sodium [facility] [address]-78 100 MCG Orally Once a day September 15, 2015 Active 1 tablet Fish Oil [facility] [address]-26 1000 mg Orally twice a day (bid) September 15, 2015 September 09, 2016 Active 2 capsules Social History Social History Element Qualifiers Date Reported Depression Screening: . negative Jan 27, 2016 Ethnicity . Status , Is polish your primary language? Yes Jan 27, 2016 [...] alcohol? . Status: No Jan 27, 2016 Family history Qualifier Description Comment Date Reported Maternal Grandmother Comment not available Jan 27, 2016 Paternal Grandmother Comment not available Jan 27, 2016 Siblings Comment not available Jan 27, 2016 Maternal Grandfather Comment not available Jan 27, 2016 Children Comment not available Jan 27, 2016 Father Comment not available Jan 27, 2016 Paternal Grandfather Comment not available Jan 27, 2016 Mother Comment not available Jan 27, 2016 Other: Comment not available Jan 27, 2016 Vital Signs Date/Time: Jan 27, 2016 Weight 185 lbs Height 63 in Cardiac Monitoring Heart Rate 83 /min Blood Pressure Diastolic 80 mm Hg Blood Pressure Systolic 128 mm Hg Summary Purpose [employer] Submission
--- OUTSIDE RECORDS SUMMARY | 2018-10-24 21:07 | XMS REPORT ---
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 Name Role Phone David Chowdhury CP Unavailable Allergies No Known Allergies Problems Problem Type Condition Code Onset Dates Condition Status Problem Prediabetes R73.09 Active Problem Mixed hyperlipidemia E78.2 Active Problem Osteopenia M85.80 Active Problem History of rheumatoid arthritis Z87.39 Active Medications Medication Code System Code Instructions Start Date End Date Status Dosage Levothyroxine Sodium [facility] [address]-77 100 MCG Orally Once a day September 15, 2015 Active 1 tablet Results No Known Results Summary Purpose e[employer] Submission
[2018-10-24] MEDS ORDERED: TRAMADOL HCL 50 MG TAB PO ONE (21:15)
[2018-10-24 22:08] VITALS: BP 138/78
--- NOTE | 2018-10-24 22:22 | Diagnostic Imaging Report ---
TOES RIGHT MIN 2 VIEWS - 3 views HISTORY: Pain COMPARISON: None available. FINDINGS: See impression. IMPRESSION: Comminuted impacted fracture of the third proximal phalanx and mildly displaced fracture of the fourth proximal phalanx. Degenerative changes of first metatarsophalangeal joint. Signed by: Dr. Rajan Marlow MD on 10/24/2018 10:19 PM
== END 2018-10-24 22:25 | disposition home or self-care (01) ==
LOC: ER 21:03
DX: S92.521A Displaced fracture of middle phalanx of right lesser toe(s), initial encounter for closed fracture (principal); S92.511A Displaced fracture of proximal phalanx of right lesser toe(s), initial encounter for closed fracture; W22.8XXA Striking against or struck by other objects, initial encounter; Y93.9 Activity, unspecified; Y92.015 Private garage of single-family (private) house as the place of occurrence of the external cause; E03.9 Hypothyroidism, unspecified; Z88.8 Allergy status to other drugs, medicaments and biological substances; Z82.49 Family history of ischemic heart disease and other diseases of the circulatory system
CPT/HCPCS: 99283

== ENCOUNTER → 2024-03-17 | Outpatient (REF) | payer MEDICARE, OTHER | LOC: US 14:13 | PROVIDERS: ATTEND Nurse Practitioner Family | DX: E03.9 Hypothyroidism, unspecified (principal) | CPT/HCPCS: 76536 ==